=== PATIENT | female | born 1985 | race Caucasian/White ===

== ENCOUNTER 2017-02-28 21:07 | Emergency (ER) | payer OTHER ==
[2017-02-28] MEDS ORDERED: DOCUSATE SODIUM 100 MG CAPSULE PO STA (21:31)
[2017-02-28] MEDS ORDERED: DOCUSATE SODIUM 100 MG CAPSULE PO ONE (21:31)
--- NOTE | 2017-02-28 21:34 | ED Physician Documentation ---
History of Present Illness - Stated complaint Stated Complaint: EAR PX - Chief complaint Chief Complaint: Heent - History obtained from History obtained from: Patient - History of Present Illness Timing: How many weeks ago (1) Pain level max: 0 Pain level now: 0 Improved by: nothing Worsened by: nothing - Additonal information Additional information: B ear pain with wax occlusion. States happens frequently to her. 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/Adenoidectomy - Present Medications Home Medications: Ambulatory Orders Medication Instructions Recorded Confirmed No Known Home Medications [No 02/28/17 02/28/17 Known Home Medications] - Allergies Allergies/Adverse Reactions: Allergies Allergy/AdvReac Type Severity Reaction Status Date / Time amoxicillin Allergy Unknown Verified 02/28/17 21:21 cefaclor [From Ceclor] Allergy Unknown Verified 02/28/17 21:21 clarithromycin [From Biaxin] Allergy Unknown Verified 02/28/17 21:21 erythromycin base Allergy Rash Verified 02/28/17 21:21 - Social History Does the pt smoke?: No Smoking Status: Never smoker Does the pt drink ETOH?: Yes Does the pt have substance abuse?: No - Immunizations Immunizations are current?: Yes - POLST Patient has POLST: No PD ED PE NORMAL - Vitals Vital signs reviewed: Yes - General General: Alert and oriented X 3, No acute distress - HEENT HEENT: Moist mucous membranes, Pharynx benign, Other (B ear canals are impacted with cerumen. ) - Derm Derm: Warm and dry - Neuro Neuro: Alert and oriented X 3 - Psych Psych: Normal mood, Normal affect Results - Vitals Vitals: Vital Signs - 24 hr 02/28/17 02/28/17 21:10 22:51 Temperature 36.2 C L Heart Rate 83 89 Respiratory 18 18 Rate Blood Pressure 121/80 121/82 H O2 Saturation 97 97 Oxygen O2 Source Room air PD MEDICAL DECISION MAKING - ED course Complexity details: considered differential, d/w patient ED course: Patient is a 31-year-old female who presents to the emergency department with bilateral cerumen impaction. Colace was dropped into the ears and then the ears were irrigated and the cerumen removed. On repeat evaluation, the tympanic membranes are clear. Patient counseled regarding signs and symptoms for which I believe and urgent re-evaluation would be necessary. Patient with good understanding of and agreement to plan and is comfortable going home at this time This document was made in part using voice recognition software. While efforts are made to proofread this document, sound alike and grammatical errors may occur. Departure - Departure Disposition: 01 Home, Self Care Clinical Impression: Impacted cerumen of both ears Condition: Good Instructions: ED Wax Ear Home Removal Follow-Up: your,doctor as needed. [Other] Comments: You can try buying colace over the counter and breaking the capsules. The contents will help soften and dissolve the wax at home. Discharge Date/Time: 02/28/17 22:51
[2017-02-28 22:53] VITALS: BP 121/82
== END 2017-02-28 22:51 | disposition home or self-care (01) ==
LOC: ED 21:07
DX: H61.23 Impacted cerumen, bilateral (principal)
CPT/HCPCS: 99283; A9270

== ENCOUNTER 2017-04-19 17:55 | Emergency (ER) | payer OTHER ==
[2017-04-19 18:06] VITALS: BP 148/100
--- NOTE | 2017-04-19 18:16 | ED Physician Documentation ---
PD HPI URI - Stated complaint Stated Complaint: BILAT EAR PAIN - Chief complaint Chief Complaint: Heent - History obtained from History obtained from: Patient - History of Present Illness Timing - onset: Other (She has a history of cerumen impaction and is fullness and whooshing in her ears like prior cerumen impaction, left worse than right without URI symptoms or fevers. 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 - Present Medications Home Medications: Ambulatory Orders Medication Instructions Recorded Confirmed No Known Home Medications [No 02/28/17 04/19/17 Known Home Medications] - Allergies Allergies/Adverse Reactions: Allergies Allergy/AdvReac Type Severity Reaction Status Date / Time amoxicillin Allergy Unknown Verified 04/19/17 18:06 cefaclor [From Ceclor] Allergy Unknown Verified 04/19/17 18:06 clarithromycin [From Biaxin] Allergy Unknown Verified 04/19/17 18:06 erythromycin base Allergy Rash Verified 04/19/17 18:06 - Social History Does the pt smoke?: No Smoking Status: Never smoker Does the pt drink ETOH?: Yes Does the pt have substance abuse?: No - Immunizations Immunizations are current?: Yes - POLST Patient has POLST: No PD ED PE NORMAL - Vitals Vital signs reviewed: Yes - General General: Alert and oriented X 3, No acute distress - HEENT HEENT: Pharynx benign, Other (TMs are normal, there is no significant cerumen.) - Neck Neck: Supple, no meningeal sign, No bony TTP - Neuro Neuro: Alert and oriented X 3, Normal speech - Psych Psych: Normal mood, Normal affect Results - Vitals Vitals: Vital Signs - 24 hr 04/19/17 18:04 Temperature 37.1 C Heart Rate 102 H Respiratory 12 Rate Blood Pressure 148/100 H O2 Saturation 98 Oxygen O2 Source Room air Departure - Departure Disposition: 01 Home, Self Care Clinical Impression: Sensation of fullness in ear Qualifiers: Laterality: bilateral Qualified Code(s): H93.8X3 - Other specified disorders of ear, bilateral Condition: Good Record reviewed to determine appropriate education?: Yes Comments: Your ears appear normal without evidence of significant ear wax or ear infection. You can try some Sudafed, if that does not help and symptoms are persistent you can follow-up with an hearing specialist, [phone] Your blood pressure was elevated today on check into the emergency department. This does not mean that you have hypertension, it is a common phenomenon to come to the emergency department and have elevated blood pressure. I recommend that she see your primary care physician within the week to have it rechecked when you are feeling better.
[2017-04-19] MEDS ORDERED: DEXAMETHASONE 10 MG/ML VIAL ONE (19:12)
[2017-04-19] MEDS ORDERED: CHERRY SYRUP 10 ML UDC PO ONE (19:12)
== END 2017-04-19 18:27 | disposition home or self-care (01) ==
LOC: ED 17:55
DX: H93.8X3 Other specified disorders of ear, bilateral (principal); R03.0 Elevated blood-pressure reading, without diagnosis of hypertension
CPT/HCPCS: 99282; 99283; A9270

== ENCOUNTER 2017-11-04 15:38 | Emergency (ER) | payer OTHER ==
[2017-11-04 15:49] VITALS: BP 158/105
--- NOTE | 2017-11-04 16:21 | ED Physician Documentation ---
PD HPI UPPER EXT INJURY - Stated complaint Stated Complaint: R HAND INJ/PX - Chief complaint Chief Complaint: Ext Problem - History obtained from History obtained from: Patient - History of Present Illness Location: Right, Wrist, Hand Type of injury: Fall Timing - onset: How many weeks ago (2 weeks ago, with reinjury with just lifting 2 days ago.) Timing - duration: Weeks (2) Timing - details: Abrupt onset, Gradual onset, Waxing and waning (worse again past couple days) Worsened by: Moving, Palpating Associated symptoms: No: Weakness, Numbness, Swelling Similar symptoms before: Has not had sx before Recently seen: Not recently seen Review of Systems Constitutional: denies: Fever, Chills Skin: denies: Abrasion (s), Laceration (s) Neurologic: denies: Focal weakness, Numbness PD PAST MEDICAL HISTORY - Past Medical History Cardiovascular: None Respiratory: None Neuro: None Endocrine/Autoimmune: None GI: None : Other HEENT: None Psych: None Musculoskeletal: Other Derm: None - Past Surgical History 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 - Present Medications Home Medications: Ambulatory Orders Medication Instructions Recorded Confirmed No Known Home Medications [No 02/28/17 04/19/17 Known Home Medications] - Allergies Allergies/Adverse Reactions: Allergies Allergy/AdvReac Type Severity Reaction Status Date / Time amoxicillin Allergy Unknown Verified 04/19/17 18:06 cefaclor [From Ceclor] Allergy Unknown Verified 04/19/17 18:06 clarithromycin [From Biaxin] Allergy Unknown Verified 04/19/17 18:06 erythromycin base Allergy Rash Verified 04/19/17 18:06 - Social History Does the pt smoke?: No Smoking Status: Never smoker Does the pt drink ETOH?: Yes Does the pt have substance abuse?: No - Immunizations Immunizations are current?: Yes - POLST Patient has POLST: No PD ED PE NORMAL - Vitals Vital signs reviewed: Yes - General General: Alert and oriented X 3, No acute distress, Well developed/nourished - Derm Derm: Normal color, Warm and dry, No rash - Extremities Extremities: No deformity, Other (right wrist and thenar area with tenderness. Not tender at snuffbox. No obvious deformity. ) - Neuro Neuro: No motor deficit, No sensory deficit Results - Vitals Vitals: Oxygen O2 Source Room air - Rads (name of study) right wrist Radiology: Prelim report reviewed, EMP read contemporaneously (no fracture) PD MEDICAL DECISION MAKING - ED course Complexity details: reviewed results, considered differential, d/w patient Departure - Departure Disposition: 01 Home, Self Care Clinical Impression: Accidental fall Qualifiers: Encounter type: initial encounter Qualified Code(s): W19.XXXA - Unspecified fall, initial encounter Hand contusion Qualifiers: Encounter type: initial encounter Laterality: right Qualified Code(s): S60.221A - Contusion of right hand, initial encounter Condition: Stable Record reviewed to determine appropriate education?: Yes Instructions: ED Contusion Hand Follow-Up: MAURO CAIN [Primary Care Provider] - Comments: You can use the wrist splint to help protect the area and motion as needed for comfort until better. Use some Tylenol or ibuprofen if needed for pains. Your x-ray appears normal without any signs of fracture. I bruised and still take a long time to heal up though. Recheck if still not better after a week or so with splinting and being careful with it. Discharge Date/Time: 11/04/17 16:41
--- NOTE | 2017-11-04 16:21 | XRAY Preliminary Report ---
Exam: XR WRIST 4 VIEW RT IMPRESSION: Normal wrist radiography. [facility] SITE ID: [id number]
--- NOTE | 2017-11-04 16:22 | XRAY Report ---
EXAM: RIGHT WRIST RADIOGRAPHY EXAM DATE: 11/04/2017 04:06 PM. CLINICAL HISTORY: Injury. Pain focal to ulnar aspect of right wrist. COMPARISON: None. TECHNIQUE: 4 views. FINDINGS: Bones: Normal. No fractures or bone lesions. Joints: Normal. No subluxations. Soft Tissues: Normal. No soft tissue swelling. IMPRESSION: Normal wrist radiography. [facility] Referring Provider Line: [phone] SITE ID: [id number]
== END 2017-11-04 16:41 | disposition home or self-care (01) ==
LOC: ED 15:38
DX: S60.221A Contusion of right hand, initial encounter (principal); W18.39XA Other fall on same level, initial encounter
CPT/HCPCS: 99283

== ENCOUNTER 2017-12-19 08:11 | Emergency (ER) | payer OTHER ==
[2017-12-19 08:25] VITALS: BP 124/90
[2017-12-19] MEDS ORDERED: DEXAMETHASONE 10 MG/ML VIAL PO STA (08:40)
--- NOTE | 2017-12-19 08:42 | ED Physician Documentation ---
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 She has some muffled hearing and pain in her ears. She was well the day before yesterday and yesterday began to have some signs and symptoms of congestion. Review of Systems Constitutional: denies: Fever Eyes: denies: Decreased vision Ears: reports: Ear pain Nose: reports: Rhinorrhea / runny nose, Congestion Throat: denies: Sore throat Cardiac: denies: Chest pain / pressure, Palpitations Respiratory: reports: Cough. 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 - Present Medications Home Medications: Ambulatory Orders Medication Instructions Recorded Confirmed Azithromycin [Zithromax] 250 mg PO DAILY #6 tablet 12/19/17 - Allergies Allergies/Adverse Reactions: Allergies Allergy/AdvReac Type Severity Reaction Status Date / Time amoxicillin Allergy Unknown Verified 12/19/17 08:25 cefaclor [From Ceclor] Allergy Unknown Verified 12/19/17 08:25 clarithromycin [From Biaxin] Allergy Unknown Verified 12/19/17 08:25 erythromycin base Allergy Rash Verified 12/19/17 08:25 - Social History Does the pt smoke?: No Smoking Status: Never smoker Does the pt drink ETOH?: Yes Does the pt have substance abuse?: No - Immunizations Immunizations are current?: Yes - POLST Patient has POLST: No PD ED PE NORMAL - Vitals Vital signs reviewed: Yes (tachy and hypertensive ) - General General: Alert and oriented X 3, Well developed/nourished - HEENT HEENT: Atraumatic, PERRL, EOMI, Other (The right TM is markedly inflamed with distortion of the landmarks and buldging. The left is with erythema and rounding of the landmarks. ) - Neck Neck: Supple, no meningeal sign, No bony TTP - Cardiac Cardiac: RRR, No murmur - Respiratory Respiratory: No respiratory distress, Clear bilaterally - Derm Derm: Normal color, Warm and dry, No rash - Extremities Extremities: No deformity, No edema - Neuro Neuro: No motor deficit, No sensory deficit Eye Opening: Spontaneous Motor: Obeys Commands Verbal: Oriented GCS Score: 15 - Psych Psych: Normal mood, Normal affect Results - Vitals Vitals: Vital Signs - 24 hr 12/19/17 08:23 Temperature 37.1 C Heart Rate 108 H Respiratory 15 Rate Blood Pressure 124/90 H O2 Saturation 97 Oxygen O2 Source Room air PD MEDICAL DECISION MAKING - ED course Complexity details: considered differential, d/w patient ED course: 32-year-old female with pain and fullness in her ears has otitis media on examination. She is administered dexamethasone 10 mg orally here in the emergency department and we will place her on some azithromycin. She has sensitivities to multiple antibiotics and believes that she has taken a azithromycin without difficulty previously. Departure - Departure Disposition: 01 Home, Self Care Clinical Impression: Otitis media Qualifiers: Otitis media type: suppurative Chronicity: acute Laterality: bilateral Recurrence: not specified as recurrent Spontaneous tympanic membrane rupture: without spontaneous rupture Qualified Code(s): H66.003 - Acute suppurative otitis media without spontaneous rupture of ear drum, bilateral Condition: Stable Instructions: ED Otitis Media Acute Adult Follow-Up: MAURO CAIN [Primary Care Provider] - Prescriptions: Azithromycin [Zithromax] 250 mg PO DAILY #6 tablet Discharge Date/Time: 12/19/17 08:56
[2017-12-19] MEDS ORDERED: CHERRY SYRUP 10 ML UDC PO ONE (08:53)
== END 2017-12-19 08:56 | disposition home or self-care (01) ==
LOC: ED 08:11
DX: H66.003 Acute suppurative otitis media without spontaneous rupture of ear drum, bilateral (principal); R05 Cough; R09.81 Nasal congestion
CPT/HCPCS: 99283; A9270